=== PATIENT | male | born 1960 | race Caucasian/White ===

== ENCOUNTER 2023-10-04 11:35 | Emergency (ER) | payer OTHER, SELFPAY ==
[2023-10-04 11:43] VITALS: BP 130/85
--- NOTE | 2023-10-04 12:02 | ED.GENMED ---
History of Present Illness
General
Chief Complaint: Abdominal Symptoms
Time Seen by Provider: 10/04/23 11:46
Travel History
Have you had any contact with someone who has COVID-19?: No
Do you have any symptoms of coronavirus? Fever > 100 degrees, chills, cough, shortness of breath, sore throat, loss of taste or smell, muscle aches, or headache?: No
History of Present Illness
History of Present Illness:
63-year-old male with no significant past medical history presents to the emergency department for right groin pain over the past 2 days, worsening swelling. Denies any traumatic injuries but does note that he was working sounds for a wedding
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 Pain is minimal currently but worse with any palpation. No fevers or chills, denies any appetite changes. No prior abdominal surgeries with exception of infantile pyloric stenosis repair
Review of Systems
Review of Systems
Allergies reviewed?: Yes
All Other Systems: ROS reviewed and negative except as documented in HPI and ROS
Phy Exam
Physical Exam
Physical Exam:
GEN: Well appearing, NAD, WDWN
HEENT: Oral mucosa moist, no scleral icterus
Cardiac: Regular rate
Lung: No respiratory distress, no tachypnea
Abdomen: Soft, grossly nontender to all 4 quadrants, no rigidity. There is marked tenderness to the right inguinal region associated with a soft mass felt most likely to represent a hernia
MSK: No gross deformity or injuries
Skin: Good color, no pallor or jaundice, no rashes
Neuro: AO x3, moves all extremities freely
Psych: Calm, cooperative
Course
Orders/Labs/Results
Orders:
Orders
10/04/23 12:02
US Groin (Imaging Only) RT Urgent
Comment:
Reason For Exam: R groin pain/lump
Vital Signs
Initial and Last Documented VS:
Initial Vital Signs
Temp Pulse Resp BP Pulse Ox
98.0 F 69 16 130/85 98
10/04/23 11:43 10/04/23 11:43 10/04/23 11:43 10/04/23 11:43 10/04/23 11:43
Last Documented Vital Signs
Temp Pulse Resp BP Pulse Ox
98.0 F 72 18 128/70 99
10/04/23 11:43 10/04/23 15:10 10/04/23 15:10 10/04/23 15:10 10/04/23 15:10
MDM/Problems Addressed
MDM/Problems Addressed:
Nonstrangulated hernia in the right inguinal region noted on imaging. Outpatient surgery follow-up recommended
*Critical Care Note
Total Time (30-74mins, 75-104mins- exclusive of procedures): Not Applicable
ED Attending Note
-
Portions of this chart may have been created with voice recognition software.� Occasional wrong word or��sound alike� substitutions may have occurred due to the inherent limitations of voice recognition software.
Discharge Plan
Departure
Patient Disposition: Home (Routine Discharge)
Date of Disposition: 10/04/23
Time of Disposition: 14:38
Patient with high blood pressure during this ER visit?: No
Discharge Problem:
Hernia, inguinal, right
Instructions: Groin Hernia (DC)
Referrals:
Riky Smith MD [Active] - Call in 1-3 days for appt
Interventions
Interventions:
*Risk Screen - Suicide Last Done: 10/04/23 12:17
*Neglect/Abuse Screening Last Done: 10/04/23 12:17
*ED COVID-19 Vaccine History Last Done: 10/04/23 11:43
*Nursing Disposition Last Done: 10/04/23 15:11
GC-Yxgixn-Btcapffkso Assessment Last Done: 10/04/23 12:17
Discharge Date and Time
Discharge Date/Time: 10/04/23 15:12
Print Language: INDONESIAN
[2023-10-04 12:17] VITALS: BMI 22.4
[2023-10-04 15:10] VITALS: BP 128/70
== END 2023-10-04 15:12 | disposition home or self-care (01) ==
LOC: EMR 11:35
PROVIDERS: EMERGENCY PHYSICIAN Emergency Medicine; FAMILY PHYSICIAN Family Medicine
DX: K40.90 Unilateral inguinal hernia, without obstruction or gangrene, not specified as recurrent (principal)
CPT/HCPCS: 99284; 76882

== ENCOUNTER → 2024-09-21 15:03 | Outpatient (REF) | payer OTHER, SELFPAY | LOC: HWRAD 15:03 | PROVIDERS: ATTENDING PHYSICIAN Surgery; FAMILY PHYSICIAN Family Medicine | DX: K40.90 Unilateral inguinal hernia, without obstruction or gangrene, not specified as recurrent (principal) | CPT/HCPCS: 74176 ==